=== PATIENT | female | born 1965 | race Caucasian/White ===

== ENCOUNTER 2017-08-31 00:57 | Emergency (ER) | payer BC, OTHER ==
[2017-08-31 04:05] VITALS: BP 130/80; PULSE 84; TEMP 98; BMI 33.3
--- NOTE | 2017-08-31 04:05 | PDOC ---
History of Present Illness - General Chief Complaint: Injury Stated Complaint: LEFT ANKLE INJURY Time Seen by Provider: 08/31/17 03:44 History Source: Patient Exam Limitations: No Limitations - History of Present Illness Initial Comments: 08/31/17 04:33 51-year-old female presents to the ER complaining of left lateral ankle pain patient states while walking, she accidentally rolled her left ankle while walking in the parking lot at work. Pain is described as 5/10 dull nonradiating intermittent discomfort. The pain is exacerbated on weight-bear and alleviated at rest. Patient denies extremity numbness or tingling sensation, knee or foot pain. Patient denies any other complaints.. Past History - Past Medical History Allergies/Adverse Reactions: Allergies Allergy/AdvReac Type Severity Reaction Status Date / Time No Known Drug Allergies Allergy Verified 08/31/17 04:05 Home Medications: Ambulatory Orders NK [No Known Home Medication] 08/31/17 COPD: Yes Liver Disease: Yes (NON ALCOHOLIC FATTY LIVER) - Surgical History Appendectomy: Yes - Suicide/Smoking/Psychosocial Hx Smoking History: Current every day smoker Have you smoked in the past 12 months: Yes Number of Cigarettes Smoked Daily: 20 Hx Alcohol Use: No Drug/Substance Use Hx: No Review of Systems - Review of Systems Able to Perform ROS?: Yes Comments:: 08/31/17 04:34 CONSTITUTIONAL: Absent: fever, chills, diaphoresis, generalized weakness, malaise, loss of appetite HEENT: Absent: rhinorrhea, nasal congestion, throat pain, throat swelling, difficulty swallowing, mouth swelling, ear pain, eye pain, visual Changes CARDIOVASCULAR: Absent: chest pain, loss of consciousness, palpitations, irregular heart rate, peripheral edema RESPIRATORY: Absent: cough, shortness of breath, dyspnea with exertion, orthopnea, wheezing, stridor, hemoptysis GASTROINTESTINAL: Absent: abdominal pain, abdominal distension, nausea, vomiting, diarrhea, constipation, melena, hematochezia GENITOURINARY: Absent: dysuria, frequency, urgency, hesitancy, hematuria, flank pain, genital pain MUSCULOSKELETAL: '+Left lat ankle pain Denies any ext numbness/tingling sensation Absent: myalgia, arthralgia, joint swelling SKIN: Absent: rash, itching, pallor Is the patient limited Slovak proficient: No *Physical Exam - Physical Exam Comments: 08/31/17 04:35 GENERAL: Well developed, well nourished. Awake and alert. No acute distress. MUSCULOSKELETAL Left ankle excluded: Normal range of motion at all joints. No bony deformities or tenderness. No CVA tenderness. EXTREMITIES: No cyanosis. No clubbing. No edema. No calf tenderness. SKIN: Warm and dry. Normal capillary refill. No rashes. No jaundice. Left ankle 2+ DP pulse Swelling to left lateral malleolus Pain to left lateral malleolus on palpation Negative pain to medial malleolus on palpation Achilles intact on palpation Decreased range of motion due to pain to the left lateral malleolus Left foot 2+ pedal pulse Negative pain to the base of the fifth metatarsal region Left knee Full range of motion Negative pain to proximal fibula on palpation ED Treatment Course - RADIOLOGY Radiology Studies Ordered: Category Date Time Status ANKLE & FOOT-LEFT* [RAD] Stat Radiology 08/31/17 02:38 Ordered Radiograph Interpretation: 08/31/17 04:05 Xr left ankle Negf fx/dislocations *DC/Admit/Observation/Transfer Diagnosis at time of Disposition: Left ankle sprain Qualifiers: Encounter type: initial encounter Involved ligament of ankle: other ligament Qualified Code(s): S93.492A - Sprain of other ligament of left ankle, initial encounter - Discharge Dispostion Disposition: HOME Condition at time of disposition: Stable Decision to Admit order: No - Referrals Referrals: Eugenio Locke MD [Primary Care Provider] - Hernando Montano MD [Staff Physician] - - Patient Instructions Printed Discharge Instructions: DI for Ankle Sprain Additional Instructions: Ice; 20 mins on alternating with 20 mins off for 48 hours while awake. Rest Elevate Follow up with your orthopedic surgeon or the one listed on the discharge form. Return to the ER for severe/persistent/worsening symptoms, extremity numbness/ tingling sensation. - Post Discharge Activity
== END 2017-08-31 04:20 | disposition home or self-care (01) ==
LOC: JER 00:57
DX: S93.492A Sprain of other ligament of left ankle, initial encounter (principal); X50.1XXA Overexertion from prolonged static or awkward postures, initial encounter; Y93.01 Activity, walking, marching and hiking; Y92.481 Parking lot as the place of occurrence of the external cause; Y99.0 Civilian activity done for income or pay
CPT/HCPCS: 73610-TC-LT-FY; 73630-TC-LT; 99281-25

== ENCOUNTER 2017-12-27 19:45 | Emergency (ER) | payer BC, OTHER ==
--- NOTE | 2017-12-27 19:51 | PDOC ---
History of Present Illness - General History Source: Patient Exam Limitations: No Limitations - History of Present Illness Initial Comments: 12/27/17 20:54 A portion of this note was documented by scribe services under my direction. I have reviewed the details of the note, within reason, and agree with the documentation. The case summary and management plan written by me. Procedure note incision and drainage of upper eyelid abscess Area was anesthetized with 1% lidocaine no epinephrine #11 scalpel was used to incise the abscess Small amount of purulent material was removed there was no loculation is due to the small area involved. Iodoform packing was placed and bacitracin with sterile dressing was applied Patient tolerated well Assessment and plan: This is a 52-year-old female with a small abscess to the medial aspect of her right right upper lid Abscess was incised and drained and packing was placed and patient was started on Bactrim First dose was given in the ED and patient was discharged for prescription and was sent to her pharmacy <Angelica Da Silva I - Last Filed: 12/27/17 20:53> - History of Present Illness Initial Comments: 12/27/17 21:02 The patient is a 52 year old female, with no significant past medical history, who presents to the emergency department with, right upper eyelid stye. As per patient, woke up with a stye a few days ago. She went to see her cutting machine tender to whom prescribed her azithromycin ointment for her eye. She took 2 doses of the antibiotics and noticed her eye to become worse prompting a repeat visit where she was prescribed oral antibiotics. The patient was unable to obtain her oral antibiotics prompting her visit to the ED. She reports difficulty seeing through the eye secondary to not being able to wear her eyeglasses due to the swelling and associated pain. She denies pain with movement of the eye. She denies recent fevers, chills, headache or dizziness. She denies recent nausea, vomit, diarrhea or constipation. She denies recent dysuria, frequency, urgency or hematuria. She denies recent chest pain or shortness of breath. PAST MEDICAL HISTORY: no significant history PAST SURGICAL HISTORY: no significant history FAMILY HISTORY: no pertinent history SOCIAL HISTORY: Pt lives with family and is employed. MEDICATIONS: reviewed ALLERGIES: As per nursing notes ROS: General: No fevers or chills, no weakness, no weight loss +HEENT: Right upper lid swelling and erythema. No sore throat,. No ear pain CardioVascular: No chest pain or shortness of breath Respiratory:No cough, or wheezing. Gastrointestinal: no nausea, vomiting, diarrhea or constipation, No rectal bleeding Genitourinary: No dysuria, hematuria, or frequency Musculoskeletal: No joint or muscle pain or swelling Neurologic: No headache, vertigo, dizziness or loss of consciousness Psychiatric: nor depression Skin: No rashes or easy bruising Endocrine: no increased thirst or abnormal weight change Allergic: no skin or latex allergy All other systems reviewed and normal Physical Exam: GENERAL: The patient is awake, alert, and fully oriented, in no acute distress. HEAD: Normal with no signs of trauma. +EYES: Right eye:Small palpable collection with some purulent drainage to the medial aspect of the right upper eyelid. Edema and erythema to the surrounding tissue of the right eye. Pupils equal, round and reactive to light, extraocular movements intact, sclera anicteric, conjunctiva clear. EXTREMITIES: Normal range of motion, no edema. NEUROLOGICAL: Normal speech, normal gait. PSYCH: Normal mood, normal affect. SKIN: Warm, Dry, normal turgor, no rashes or lesions noted. <Orville Messer - Last Filed: 12/27/17 21:03> - General Chief Complaint: Redness To Affected Area Stated Complaint: RT EYELID REDNESS/SWELLING Time Seen by Provider: 12/27/17 19:51 Past History - Past Medical History COPD: Yes Liver Disease: Yes (NON ALCOHOLIC FATTY LIVER) - Surgical History Appendectomy: Yes - Suicide/Smoking/Psychosocial Hx Smoking History: Current every day smoker Have you smoked in the past 12 months: Yes Number of Cigarettes Smoked Daily: 20 'Breaking Loose' booklet given: 08/31/17 Hx Alcohol Use: No Drug/Substance Use Hx: No <Angelica Da Silva I - Last Filed: 12/27/17 20:53> <Orville Messer - Last Filed: 12/27/17 21:03> - Past Medical History Allergies/Adverse Reactions: Allergies Allergy/AdvReac Type Severity Reaction Status Date / Time No Known Drug Allergies Allergy Verified 08/31/17 04:05 Home Medications: Ambulatory Orders Sulfamethoxazole/Trimethoprim [Bactrim DS -] 1 tab PO DAILY #14 tablet 12/27/17 *Physical Exam - Vital Signs Last Vital Signs Temp Pulse Resp BP Pulse Ox 98.2 F 92 H 16 142/77 97 12/27/17 19:46 12/27/17 19:46 12/27/17 19:46 12/27/17 19:46 12/27/17 19:46 <Orville Messer - Last Filed: 12/27/17 21:03> ED Treatment Course - Medications Given in the ED: ED Medications Discontinued Medications Generic Name Dose Route Start Last Admin Trade Name Estephanie PRN Reason Stop Dose Admin Clindamycin HCl 600 mg 12/27/17 20:15 12/27/17 20:23 Cleocin - PO 12/27/17 20:16 Not Given ONCE ONE Ketorolac Tromethamine 60 mg 12/27/17 20:14 12/27/17 20:23 Toradol Injection - IM 12/27/17 20:15 Not Given ONCE ONE Trimethoprim/Sulfamethoxazole 1 each 12/27/17 20:53 12/27/17 20:56 Bactrim Ds - PO 12/27/17 20:54 1 each ONCE ONE Administration <Orville Messer - Last Filed: 12/27/17 21:03> *DC/Admit/Observation/Transfer - Discharge Dispostion Decision to Admit order: No <Angelica Da Silva I - Last Filed: 12/27/17 20:53> - Attestations Scribe Attestion: 12/27/17 21:03 Documentation prepared by Orville Messer, acting as medical claims assistant for Angelica Da Silva MD. <Orville Messer - Last Filed: 12/27/17 21:03> Diagnosis at time of Disposition: Abscess of right upper eyelid - Discharge Dispostion Disposition: HOME Condition at time of disposition: Stable - Prescriptions Prescriptions: Sulfamethoxazole/Trimethoprim [Bactrim DS -] 1 tab PO DAILY #14 tablet - Referrals Referrals: Eugenio Locke MD [Primary Care Provider] - - Patient Instructions Additional Instructions: Removed the Band-Aid tomorrow afternoon and that the packing will most likely come off with a Band-Aid if it does not remove the packing and start hot soaks to the area. Go to the pharmacy and sampler pickup her prescription for the antibiotic take one tablet twice a day for 7 days. Follow-up with your eye doctor next week. Return to the emergency department immediately with ANY new, persistent or worsening symptoms. Continue any medications as previously prescribed by your physician. You should follow up with your primary doctor as soon as possible regarding today's emergency department visit. . Please make sure your doctor reviews the results of your emergency evaluation. Thank you for coming to the Emergency Department today for your care. It was a pleasure to see you today. Please note that your evaluation is INCOMPLETE until you follow-up with your doctor. - Post Discharge Activity
[2017-12-27] MEDS ORDERED: KETOROLAC TROMETHAMINE 60 MG/2 ML VIAL IM ONE (20:14)
[2017-12-27] MEDS ORDERED: CLINDAMYCIN HCL 300 MG CAPSULE PO ONE (20:15)
[2017-12-27 20:21] VITALS: BP 142/77; PULSE 92; TEMP 98.2; BMI 32.4
[2017-12-27] MEDS ORDERED: SULFAMETHOXAZOLE/TRIMETHOPRIM 800MG/160MG D.S. TABLET PO ONE (20:53)
[2017-12-27] MEDS ORDERED: SULFAMETHOXAZOLE/TRIMETHOPRIM 800MG/160MG D.S. TABLET ONE (20:56)
== END 2017-12-27 21:01 | disposition home or self-care (01) ==
LOC: FER 19:45
PROC: 089NXZZ Drainage of Right Upper Eyelid, External Approach (ICD-10-PCS; principal; 2017-12-27)
DX: H00.031 Abscess of right upper eyelid (principal); F17.210 Nicotine dependence, cigarettes, uncomplicated; J44.9 Chronic obstructive pulmonary disease, unspecified
CPT/HCPCS: 99281-25

== ENCOUNTER 2018-06-16 10:27 | Inpatient (IN) | payer BC ==
--- NOTE | 2018-06-16 11:47 | PDOC ---
Attending Attestation - HPI HPI: 06/16/18 12:34 The patient is a 52 year old female with a past medical history of multiple abscesses here today for evaluation of a gluteal abscess that has been present for the past 2-3 weeks. She reports that her abscess has been draining spontaneously during the past 2-3 weeks. Allergies: NKDA - Physicial Exam PE: 06/16/18 12:35 Vitals: Triage vital signs reviewed General Appearance: No acute distress, well nourished, well developed Head: Atraumatic Chest Wall: Nontender Cardiac: Regular rate and rhythm, no murmurs, no rubs, no gallops Lungs: Clear to auscultation bilateral, good air movement bilaterally Extremities: Full range of motion to all extremities, no cyanosis, clubbing, or edema Skin: +5x5 cm indurated cellulitic area of the left upper gluteal area. Warm and dry Neuro: AOX3; Cranial Nerves 2-12 grossly intact, Strength intact to all extremities, Sensation intact to all extremities, gait normal Psych: Normal mood, normal affect - Medical Decision Making 06/16/18 12:37 Documentation prepared by KASSANDRA Do, acting as medical billing instructor for Flavio Valencia MD. The patient is a 52 year old female with a past medical history of multiple abscesses here today for evaluation of a gluteal abscess that has been present for the past 2-3 weeks. <Shmuel Abdi - Last Filed: 06/16/18 12:34> - Resident Resident Name: Shruti Chambers - ED Attending Attestation I have performed the following: I have examined & evaluated the patient, The case was reviewed & discussed with the resident, I agree w/resident's findings & plan, Exceptions are as noted - Medical Decision Making 06/16/18 15:43 Large indurated gluteal abscess versus cellulitis No significant fluctuance noted on examination Will admit Pt. for IV antibiotics, warm compresses and surgical consultation <Flavio Valencia - Last Filed: 06/16/18 15:45>
[2018-06-16] MEDS ORDERED: ACETAMINOPHEN 1000 MG/100 ML VIAL (NON FORMULARY) IVPB ONE (11:48)
--- NOTE | 2018-06-16 12:10 | PDOC ---
History of Present Illness - General Chief Complaint: Wound Stated Complaint: ABSCESS ON BUTTOCKS Time Seen by Provider: 06/16/18 11:07 - History of Present Illness Initial Comments: Trina Myers is a 52yo woman with a PMH of multiple abscesses who was sent from her PMD for evaluation and management of a gluteal abscess. 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 She has had multiple courses of bactrim in the past but continues to have abscesses. She has never had a gluteal abscess before, however. She reports that she initially noted pain on 05/24/18 and was diagnosed with shingles at that time. Shortly afterwards, she also noted a "lump" in the area but tried to treat it at home without coming for drainage. Then two days ago, the lump "burst" with drainage of "pus and blood" and increase in pain. She states that her helps her drain it several times per day. Due to the increased pain and continued drainage, she went to see her PMD today who felt she may need IV antibiotics and admission due to the recurrent abscesses. Ms Myers denies any recent fevers/chills, other recent abscess, spreading erythema, or other recent symptoms. Past History - Past Medical History Allergies/Adverse Reactions: Allergies Allergy/AdvReac Type Severity Reaction Status Date / Time No Known Drug Allergies Allergy Verified 08/31/17 04:05 Home Medications: Ambulatory Orders Tramadol HCl 50 mg PO QID PRN #12 tablet MDD 4 01/26/18 COPD: Yes Liver Disease: Yes (NON ALCOHOLIC FATTY LIVER) - Surgical History Appendectomy: Yes - Suicide/Smoking/Psychosocial Hx Smoking History: Former smoker Have you smoked in the past 12 months: No Number of Cigarettes Smoked Daily: 20 Information on smoking cessation initiated: No 'Breaking Loose' booklet given: 08/31/17 Hx Alcohol Use: No Drug/Substance Use Hx: No Review of Systems - Review of Systems Comments:: General: No fevers, no chills, no weight or appetite change, no malaise HEENT: No changes in vision, no changes in hearing, no congestion, no sore throat CV: No chest pain, no palpitations, no LE edema Pulm: No SOB, no cough, no wheezing GI: No nausea or vomiting, no change in bowel habits, no melena : No frequency, no urgency, no dysuria Musc: No back pain, no joint swelling, no recent injury Skin: see HPI Endo: No excessive thirst, no heat/cold intolerance Heme: No unusual bruising or bleeding, no swollen glands Neuro: No syncope, no numbness/tingling, no focal weakness Vasc: No claudication Psych: No recent change in mood, no SI or HI *Physical Exam - Vital Signs Last Vital Signs Temp Pulse Resp BP Pulse Ox 98.6 F 84 16 122/74 98 06/16/18 10:42 06/16/18 10:42 06/16/18 10:42 06/16/18 10:42 06/16/18 10:42 - Physical Exam Comments: General: Uncomfortable HEENT: PERRL, EOMI, MMM, voice normal Cards: RRR, no murmur appreciated Pulm: Comfortable on room air Abd: Soft, nontender, nondistended Rectal: 6cm x 8cm indurated, erythematous, warm area to the left of the gluteal cleft. No obvious fluctuance or active drainage; dried pus/blood noted along gluteal cleft. Ext: Atraumatic. No LE edema. ROM intact. Vasc: Extremities WWP. Neuro: A&Ox3, CN grossly intact, normal speech, motor/sensory grossly intact and symmetric Psych: Mood appropriate to situation Moderate Sedation - Procedure Monitoring Vital Signs: Procedure Monitoring Vital Signs Temperature 98.6 F 06/16/18 10:42 Pulse Rate 84 06/16/18 10:42 Respiratory Rate 16 06/16/18 10:42 Blood Pressure 122/74 06/16/18 10:42 O2 Sat by Pulse Oximetry (%) 98 06/16/18 10:42 ED Treatment Course - LABORATORY CBC & Chemistry Diagram: 06/16/18 12:00 06/16/18 12:04 Medical Decision Making - Medical Decision Making 06/16/18 12:08 Trina Myers is a 52yo woman with a PMH of multiple abscesses who presents with a gluteal abscess present for 2-3 weeks, now draining spontaneously. - CBC, CMP to rule out abnormalities - Pt is in vertical area. Need to examine abscess, possibly I&D, after she is moved to a private room - IV acetaminophen for pain control 06/16/18 12:51 - Bedside US completed. Small fluid pocket at medial edge of abscess, approx 1cm in depth x 2cm wide, very little to drain at this point - Discussed with Dr Locke. Will admit to his service w/ surgery consult. IV clindamycin for MRSA coverage. Discussed with Dr Valencia. Shruti Chambers PGY1 *DC/Admit/Observation/Transfer Diagnosis at time of Disposition: Abscess and cellulitis of gluteal region - Discharge Dispostion Condition at time of disposition: Stable Decision to Admit order: Yes - Referrals - Patient Instructions - Post Discharge Activity
[2018-06-16] MEDS ORDERED: ACETAMINOPHEN INJECTION 100 ML IVPB ONE (12:15)
[2018-06-16 12:25] LABS: BASO % 0.5 % (0-2.0); EOS % 3.3 % (0-4.5); HEMATOCRIT 40.8 % (32.4-45.2); HEMOGLOBIN 14.1 GM/dL (10.7-15.3); LYMPH % 14.1 % (8-40); MCH 30.2 pg (25.7-33.7); MCHC 34.5 g/dl (32.0-36.0); MEAN CELL VOLUME 87.6 fl (80-96); MEAN PLT VOLUME 9.4 fl (7.5-11.1); MONO % 6.4 % (3.8-10.2); NEUT % 75.7 % (42.8-82.8); PLATELET COUNT 196 K/MM3 (134-434); RBC 4.66 M/mm3 (3.60-5.2); RDW 14.6 % (11.6-15.6); WHITE BLOOD COUNT 10.3 K/mm3 (4.0-10.0)
[2018-06-16 12:51] LABS: ALBUMIN 3.7 g/dl (3.4-5.0); ALK PHOS 128 U/L (45-117); ANION GAP 6 MMOL/L (8-16); BILIRUBIN,TOTAL 0.5 mg/dL (0.2-1); BLOOD UREA NITROGEN 12 mg/dL (7-18); CALCIUM 8.7 mg/dL (8.5-10.1); CHLORIDE 102 mmol/L (98-107); CO2 28 mmol/L (21-32); CREATININE 0.7 mg/dL (0.55-1.3); GLUCOSE,RANDOM 135 mg/dL (74-106); POTASSIUM 4.1 mmol/L (3.5-5.1); SGOT/AST 19 U/L (15-37); SGPT/ALT 33 U/L (13-61); SODIUM 136 mmol/L (136-145); TOT PROT 7.3 g/dl (6.4-8.2)
[2018-06-16] MEDS ORDERED: CLINDAMYCIN 600MG PREMIX IVPB 600 MG/50 ML BAG IVPB SCH (13:15)
[2018-06-16] MEDS ORDERED: CLINDAMYCIN 600MG PREMIX IVPB 600 MG/50 ML BAG IVPB ONE (13:45)
--- NOTE | 2018-06-16 14:39 | HP ---
Admitting History and Physical - Primary Care Physician PCP: Eugenio Locke - Admission Chief Complaint: came in with abscess in left gluteal region History of Present Illness: 52yo woman with a PMH of multiple abscesses who presents with a gluteal abscess present for 2-3 weeks, now draining spontaneously. per patient she started on bactrim and keflex , she reports chills at home, felt warm,she started doing oat meal baths, her pushed on her abscess and it drained significant amount per patient tylenol and clindamycin in ER History Source: Patient - Past Medical History ...LMP: 04/10/12 - Smoking History Smoking history: Former smoker Have you smoked in the past 12 months: No Aproximately how many cigarettes per day: 20 - Alcohol/Substance Use Hx Alcohol Use: No Home Medications - Allergies Allergies/Adverse Reactions: Allergies Allergy/AdvReac Type Severity Reaction Status Date / Time No Known Drug Allergies Allergy Verified 08/31/17 04:05 - Home Medications Home Medications: Ambulatory Orders Tramadol HCl 50 mg PO QID PRN #12 tablet MDD 4 01/26/18 Review of Systems - Review of Systems Neck: reports: No Symptoms Cardiovascular: reports: No Symptoms Respiratory: reports: No Symptoms Integumentary: reports: Erythema, Other (left gluteal abscess with two open lesions warm erythematous to touch) Physical Examination Vital Signs: Vital Signs Temperature 98.6 F 06/16/18 10:42 Pulse Rate 84 06/16/18 10:42 Respiratory Rate 16 06/16/18 10:42 Blood Pressure 122/74 06/16/18 10:42 O2 Sat by Pulse Oximetry (%) 98 06/16/18 10:42 Constitutional: Yes: Calm Cardiovascular: Yes: Regular Rate and Rhythm, S1, S2 Respiratory: Yes: CTA Bilaterally Gastrointestinal: Yes: Normal Bowel Sounds, Soft Integumentary: Yes: Erythema, Other (warm firm tender to touch) Labs: CBC, BMP 06/16/18 12:00 06/16/18 12:04 Problem List - Problems (1) Abscess and cellulitis of gluteal region Assessment/Plan: ID/surgical iv abx pain control esr dvt ppx Code(s): L02.31 - CUTANEOUS ABSCESS OF BUTTOCK; L03.317 - CELLULITIS OF BUTTOCK
[2018-06-16] MEDS ORDERED: ACETAMINOPHEN 325 MG TABLET (FP) PO PRN (14:42)
--- NOTE | 2018-06-16 15:33 | CONSULT ---
- Consultation REQUESTING PROVIDER: CONSULT REQUEST: We have been asked to surgically evaluate this patient for ( Gluteal abscess). PCP:Eugenio Locke HISTORY OF PRESENT ILLNESS: 52 y/o F w/ h/o multiple abscesses (+MRSA) pre-DM, now presents to ED with a gluteal abscess. Pt reports her noted a large rash on her posterior buttock on May 24. Pt was seen by PCP who prescribed Valtrex and Calamine for suspected shingles. States she completed entire course with no resolution, a few days later her noted a large red area adjacent to the rash. Reports her pushed on it and a large amount of "pus" came out. Area has continued to drain spontaneously since. States she was seen her PCP again and PO abx were prescribed (bactrim and keflex ), pt continued to develop worsening pain and was urged to go to the ED by her friend who is an DATA SYSTEMS ANALYST. Denies fevers/chills, n/v/d, cp/sob. Reports history of multiple abscesses + for MRSA which she reports she got from her who also has had multiple abscess + for MRSA. States abscesses have been treated with PO abx and I&D, denies need for hospital admissions/IV abx/ sepsis in the past. Last abscess was treated at [facility] (R eyelid) in December 2017. PMHx: as above PSHx: sinus surgery (March 2018) Home Medications Medication Instructions Recorded Tramadol HCl 50 mg PO QID PRN #12 tablet MDD 4 01/26/18 Allergies Allergy/AdvReac Type Severity Reaction Status Date / Time No Known Drug Allergies Allergy Verified 08/31/17 04:05 REVIEW OF SYSTEMS: CONSTITUTIONAL: Absent: fever, chills, diaphoresis CARDIOVASCULAR: Absent: chest pain, syncope RESPIRATORY: Absent: cough, shortness of breath SKIN: + rash PHYSICAL EXAM: GENERAL: Awake, alert, and fully oriented, in no acute distress. HEAD: Normal with no signs of trauma. Buttock/Gluteal: Approx 2.5x1.5cm open wound just above gluteal cleft, wound bed with dried fibrinous exudate with calamine atop, smaller similar wound to right of gluteal cleft approx 1x.5cm. No erythema or drainage. Approx 3x3cm indurated area on Left inner glute ++ increased warmth, ++ induration, ++ erythema, ++ttp. No fluctance appreciated. Unable to find sinus track. Unable to express any purulence, scant seropurulent drainage in gluteal cleft. Small punctate area at bottom of left gluteal fold +erythema, +induration, ? fluctance. Unable to express any purulence, Vital Signs Temperature 98.6 F 06/16/18 10:42 Pulse Rate 84 06/16/18 10:42 Respiratory Rate 16 06/16/18 10:42 Blood Pressure 122/74 06/16/18 10:42 O2 Sat by Pulse Oximetry (%) 98 06/16/18 10:42 Lab Results WBC 10.3 K/mm3 (4.0-10.0) H 06/16/18 12:00 RBC 4.66 M/mm3 (3.60-5.2) 06/16/18 12:00 Hgb 14.1 GM/dL (10.7-15.3) 06/16/18 12:00 Hct 40.8 % (32.4-45.2) 06/16/18 12:00 MCV 87.6 fl (80-96) 06/16/18 12:00 MCHC 34.5 g/dl (32.0-36.0) 06/16/18 12:00 RDW 14.6 % (11.6-15.6) 06/16/18 12:00 Plt Count 196 K/MM3 (134-434) 06/16/18 12:00 Sodium 136 mmol/L (136-145) 06/16/18 12:04 Potassium 4.1 mmol/L (3.5-5.1) 06/16/18 12:04 Chloride 102 mmol/L (98-107) 06/16/18 12:04 Carbon Dioxide 28 mmol/L (21-32) 06/16/18 12:04 Anion Gap 6 MMOL/L (8-16) L 06/16/18 12:04 BUN 12 mg/dL (7-18) 06/16/18 12:04 Creatinine 0.7 mg/dL (0.55-1.3) 06/16/18 12:04 Random Glucose 135 mg/dL (74-106) H 06/16/18 12:04 Calcium 8.7 mg/dL (8.5-10.1) 06/16/18 12:04 A/P: 52 y/o F w/ h/o multiple abscesses (+MRSA) pre-DM, now presents to ED with a gluteal abscess. Pt with + area of induration to left inner glute and gluteal fold. Afebrile, VSS, mildly elevated wbc -IV abx, would cover for MRSA due to pts past h/o + MRSA -ID consult -NPO after midnight for OR tomorrow for I&D -AM labs (cbc, chem, coags, bHCG) above d/w attending Dr Mckenzie
--- NOTE | 2018-06-16 16:02 | PN ---
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
[2018-06-16] MEDS ORDERED: VANCOMYCIN 1 GRAM (PRE-DOCKED) 1,000 MG/250 ML BAG IVPB ONE (16:55)
[2018-06-16] MEDS: VANCOMYCIN HCL 1,250 MG in DEXTROSE 5%-WATER - 250 ML IVPB SCH (17:56)
--- NOTE | 2018-06-16 18:52 | CONS ---
DATE OF CONSULTATION: 06/16/2018 DATE OF DICTATION: 06/16/2018 INFECTIOUS DISEASE CONSULTATION REQUESTING PHYSICIAN: Jean Claude Fernandez M.D. CONSULTING PHYSICIAN: Ember Cordoba M.D. HISTORY OF PRESENT ILLNESS: This is a 52-year-old woman. She has a gluteal abscess that has been present for the last 1 or 2 weeks. She originally noticed it and went to see her deck engine operator, who told her to use Hibiclens, and she complained of some urinary, said her urine was frothy, sent a urinalysis, and called her back and told her she had a UTI and gave her antibiotics for 7 days. Her back looked worse. She went to see her PMD who thought perhaps she had zoster. She was put on Valtrex 3 times a day and calamine lotion, which she did for 5 days, at which point she noted she was developing an abscess on her buttocks. The original area in her sacrum had dried up. She spoke to her friend who was a nurse practitioner who recommended, and she had Bactrim at home, so she started taking the Bactrim. She continued to have further symptoms, and she started doing oatmeal baths, and her stated, when he pushed on the abscess, was able to drain it. She reports chills at home, no reported fevers. In the emergency room she was noted to have erythema and induration of her left buttock. I am asked to see her for further evaluation. She was given Tylenol and clindamycin in the emergency room. PAST MEDICAL HISTORY: Unremarkable. She is a former smoker. She quit 14 days ago. She lives with her who has a history of MRSA in the past. He currently has no medical care, and she says he continues to develop MRSA abscesses. She gives a history of having had prior MRSA abscesses in the past. They are not documented at [facility]. ALLERGIES: No known drug allergies. MEDICATION: Tramadol as an outpatient. 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 PHYSICAL EXAMINATION: GENERAL: She is awake and alert. VITAL SIGNS: Temperature 98.6, pulse 84, blood pressure 122/74, respiratory rate 16. HEENT: Normocephalic. Eyes are anicteric. NECK: Supple. LUNGS: Clear to auscultation. HEART: Regular rate and rhythm. ABDOMEN: Soft, nontender. EXTREMITIES: Without edema. She has a healed area right above her gluteal cleft. Her left buttocks, she has a large area of erythema and induration. There are 2 small punctate holes from which there is some bloody drainage that can be expressed. She has another small area at the bottom of her left gluteal fold that is erythematous and indurated. LABORATORY: Notable for white count of 10, hemoglobin 14, platelets of 196, BUN and creatinine are 12 and 0.7. IMPRESSION: In summary this is a 52-year-old woman with a buttock abscess with surrounding cellulitis, history of methicillin-resistant Staphylococcus aureus. I would treat her with vancomycin and Zosyn at this time. Blood cultures have been ordered stat. Wound culture has been sent. Surgery is to see for drainage. Would maintain contact isolation given the prior history. There are no documented methicillin-resistant Staphylococcus aureus cultures in our system, but the patient claims she has had methicillin-resistant Staphylococcus aureus infection in the past. EMBER CORDOBA M.D. [id number]
[2018-06-16] MEDS ORDERED: oxyCODONE HCL 5 MG TABLET ONE (19:20)
[2018-06-16] MEDS: oxyCODONE HCL 5 MG TABLET PO PRN (19:36)
[2018-06-16] MEDS: PIPERACILLIN/TAZOB 3.375 GM 3.375 GM in DEXTROSE 5%-WATER - 50 ML IVPB SCH (20:30)
[2018-06-16] MEDS ORDERED: PIPERACILLIN/TAZOB 3.375 GM 3.375 GM/50 ML BAG IVPB ONE (20:33)
[2018-06-16] MEDS ORDERED: DOCUSATE SODIUM 100 MG CAPSULE (FP) PO SCH (22:00)
[2018-06-16] MEDS: HEPARIN NA (PORCINE) 5,000 UNITS/ML 1ML VIAL SQ SCH (22:30)
[2018-06-17] MEDS ORDERED: PIPERACILLIN/TAZOB 3.375 GM 3.375 GM/50 ML BAG IVPB ONE ×2 (02:03→09:56)
[2018-06-17] MEDS: PIPERACILLIN/TAZOB 3.375 GM 3.375 GM in DEXTROSE 5%-WATER - 50 ML IVPB SCH ×3 (02:13→18:00)
[2018-06-17] MEDS: VANCOMYCIN HCL 1,250 MG in DEXTROSE 5%-WATER - 250 ML IVPB SCH ×2 (05:00→16:25)
[2018-06-17 07:22] LABS: BASO % 0.6 % (0-2.0); HEMATOCRIT 38.7 % (32.4-45.2); HEMOGLOBIN 13.2 GM/dL (10.7-15.3); LYMPH % 22.3 % (8-40); MCHC 34.3 g/dl (32.0-36.0); MEAN CELL VOLUME 87.6 fl (80-96); MEAN PLT VOLUME 9.6 fl (7.5-11.1); MONO % 7.1 % (3.8-10.2); PLATELET COUNT 184 K/MM3 (134-434); RBC 4.41 M/mm3 (3.60-5.2); RDW 14.9 % (11.6-15.6); WHITE BLOOD COUNT 6.4 K/mm3 (4.0-10.0)
[2018-06-17 07:32] LABS: INR 0.96 (0.83-1.09); PROTHROMBIN TIME (PATIENT) 11.3 SEC (9.7-13.0)
[2018-06-17 07:34] LABS: ACTIVATED PTT 29.7 SECONDS (25.2-36.5)
[2018-06-17 07:49] LABS: ALBUMIN 3.3 g/dl (3.4-5.0); ALK PHOS 110 U/L (45-117); ANION GAP 7 MMOL/L (8-16); BILIRUBIN,TOTAL 0.6 mg/dL (0.2-1); BLOOD UREA NITROGEN 17 mg/dL (7-18); CALCIUM 8.5 mg/dL (8.5-10.1); CHLORIDE 103 mmol/L (98-107); CO2 27 mmol/L (21-32); CREATININE 0.6 mg/dL (0.55-1.3); GLUCOSE,RANDOM 91 mg/dL (74-106); PHOSPHOROUS 4.9 mg/dL (2.5-4.9); POTASSIUM 4.1 mmol/L (3.5-5.1); SGOT/AST 14 U/L (15-37); SGPT/ALT 28 U/L (13-61); SODIUM 138 mmol/L (136-145); TOT PROT 6.6 g/dl (6.4-8.2)
[2018-06-17] MEDS ORDERED: oxyCODONE HCL 5 MG TABLET ONE ×2 (08:47→16:06)
[2018-06-17] MEDS: oxyCODONE HCL 5 MG TABLET PO PRN ×2 (08:50→16:00)
[2018-06-17] MEDS: HEPARIN NA (PORCINE) 5,000 UNITS/ML 1ML VIAL SQ SCH ×2 (10:04→21:31)
--- NOTE | 2018-06-17 10:45 | EKG ---
Test Reason : Blood Pressure : / mmHG Vent. Rate : 077 BPM Atrial Rate : 077 BPM P-R Int : 158 ms QRS Dur : 090 ms QT Int : 382 ms P-R-T Axes : 059 043 045 degrees QTc Int : 432 ms NORMAL SINUS RHYTHM NORMAL ECG NO PREVIOUS ECGS AVAILABLE Confirmed by Al Alexandre MD ([id number]) on 06/17/2018 10:45:32 AM Referred By: GRICEL JOHNSON Confirmed By:Al Alexandre MD
[2018-06-17] MEDS ORDERED: LIDOCAINE HCL/PF 2% SDV 5ML VIAL ONE (11:23)
[2018-06-17] MEDS ORDERED: DEXAMETHASONE SOD PHOSPHATE 4 MG/1 ML VIAL ONE (11:23)
[2018-06-17] MEDS ORDERED: PROPOFOL 20 ML ONE (11:25)
[2018-06-17] MEDS ORDERED: MIDAZOLAM HCL 2 MG/2 ML SINGLE DOSE VIAL ONE (11:25)
--- NOTE | 2018-06-17 12:49 | OP ---
Operative Note - Note: Operative Date: 06/17/18 Pre-Operative Diagnosis: abscess left buttock and left posterior thigh Operation: incision and drainage abscesses Surgeon: Sae Mckenzie Cake Former: Itz Sevilla Anesthesiologist/GEOLOGIC TECHNICIAN: Juice Hanna Anesthesia: General Specimens Removed: culture abscess Estimated Blood Loss (mls): 10
[2018-06-17] MEDS ORDERED: ONDANSETRON 4 MG/2 ML VIAL IVPUSH PRN ×2 (14:39→14:56)
[2018-06-17] MEDS ORDERED: LACTATED RINGERS SOLUTION 1,000 ML IV SCH (14:45)
[2018-06-17] MEDS ORDERED: PROMETHAZINE HCL 25 MG/1 ML VIAL IVPUSH PRN (14:56)
--- NOTE | 2018-06-17 15:13 | PN ---
Progress Note, Physician Chief Complaint: patient seen in pacu compalining of gluteal region pain - Current Medication List Current Medications: Active Medications Acetaminophen (Tylenol -) 650 mg PO Q6H PRN PRN Reason: FEVER Docusate Sodium (Colace -) 300 mg PO HS DELL Fentanyl (Sublimaze Injection -) 50 mcg IVPUSH [id number] PRN PRN Reason: PAIN-PACU ORDER X 4 DOSES ONLY Fentanyl (Sublimaze Injection -) 50 mcg IVPUSH [id number] PRN PRN Reason: PAIN-PACU ORDER X 4 DOSES ONLY Heparin Sodium (Porcine) (Heparin -) 5,000 unit SQ BID DELL Vancomycin HCl 1,250 mg/ (Dextrose) 250 mls @ 166.667 mls/hr IVPB Q12H DELL; Protocol Piperacillin Sod/Tazobactam (Sod 3.375 gm/ Dextrose) 50 mls @ 100 mls/hr IVPB Q8H-IV DELL; Protocol Lactated Ringer's (Lactated Ringers Solution) 1,000 mls @ 125 mls/hr IV ASDIR DELL Lactated Ringer's (Lactated Ringers Solution) 1,000 mls @ 125 mls/hr IV ASDIR DELL Ondansetron HCl (Zofran Injection) 4 mg IVPUSH Q6H PRN PRN Reason: NAUSEA AND/OR VOMITING Ondansetron HCl (Zofran Injection) 4 mg IVPUSH Q6H PRN PRN Reason: NAUSEA AND/OR VOMITING Oxycodone HCl (Roxicodone -) 5 mg PO Q6H PRN PRN Reason: PAIN LEVEL 7 - 10 Promethazine HCl (Phenergan Injection -) 12.5 mg IVPUSH Q6H PRN PRN Reason: NAUSEA-FOR RESCUE AFTER 15 MIN - Objective Vital Signs: Vital Signs Temperature 98.4 F 06/17/18 08:35 Pulse Rate 78 06/17/18 14:30 Respiratory Rate 18 06/17/18 14:30 Blood Pressure 119/68 06/17/18 14:30 O2 Sat by Pulse Oximetry (%) 100 06/17/18 14:30 Constitutional: Yes: Mild Distress Cardiovascular: Yes: Regular Rate and Rhythm, S1, S2 Respiratory: Yes: CTA Bilaterally Gastrointestinal: Yes: Normal Bowel Sounds, Soft Wound/Incision: Yes: Other (wound packed in gluteal region) Labs: CBC, BMP 06/17/18 05:30 06/17/18 06:30 INR, PTT INR 0.96 (0.83-1.09) 06/17/18 05:38 Problem List - Problems (1) Abscess and cellulitis of gluteal region Assessment/Plan: - Note: Operative Date: 06/17/18 Pre-Operative Diagnosis: abscess left buttock and left posterior thigh Operation: incision and drainage abscesses Surgeon: Sae Mckenzie Lasting Floorworker: Itz Sevilla Anesthesiologist/GAS STATION CLERK: Juice Hanna Anesthesia: General Specimens Removed: culture abscess Estimated Blood Loss (mls): 10 pain control stol softner dvt ppxiv abx per ID wound culture presumtpive MRSA on vancomcyin contact isolation Microbiology 06/16/18 15:45 Buttock - Left Gram Stain - Final 06/16/18 15:45 Buttock - Left Wound Culture - Preliminary Presumptive Mrsa (Pbp2a Pos) Code(s): L02.31 - CUTANEOUS ABSCESS OF BUTTOCK; L03.317 - CELLULITIS OF BUTTOCK
[2018-06-17] MEDS: LACTATED RINGERS SOLUTION 1,000 ML IV SCH ×2 (16:25→21:44)
[2018-06-17 21:12] VITALS: BMI 33.4
[2018-06-17] MEDS: DOCUSATE SODIUM 100 MG CAPSULE (FP) PO SCH (21:31)
[2018-06-18] MEDS ORDERED: DEXTROSE 5%-WATER - 50 ML IVPB ONE (01:54)
[2018-06-18] MEDS ORDERED: PIPERACILLIN/TAZOBACTAM 3.375 GM VIAL IVPB ONE (01:54)
[2018-06-18] MEDS: PIPERACILLIN/TAZOB 3.375 GM 3.375 GM in DEXTROSE 5%-WATER - 50 ML IVPB SCH (01:58)
[2018-06-18] MEDS: VANCOMYCIN HCL 1,250 MG in DEXTROSE 5%-WATER - 250 ML IVPB SCH ×2 (03:54→16:02)
[2018-06-18] MEDS: oxyCODONE HCL 5 MG TABLET PO PRN (07:08)
[2018-06-18 07:21] LABS: BASO % 0.8 % (0-2.0); EOS % 0.1 % (0-4.5); HEMATOCRIT 37.4 % (32.4-45.2); HEMOGLOBIN 12.6 GM/dL (10.7-15.3); LYMPH % 12.5 % (8-40); MCH 29.3 pg (25.7-33.7); MCHC 33.5 g/dl (32.0-36.0); MEAN CELL VOLUME 87.3 fl (80-96); MEAN PLT VOLUME 9.2 fl (7.5-11.1); MONO % 6.3 % (3.8-10.2); NEUT % 80.3 % (42.8-82.8); PLATELET COUNT 222 K/MM3 (134-434); RBC 4.29 M/mm3 (3.60-5.2); RDW 14.2 % (11.6-15.6); WHITE BLOOD COUNT 10.2 K/mm3 (4.0-10.0)
[2018-06-18] MEDS ORDERED: MORPHINE SULFATE 2 MG/ML VIAL SQ ONE (07:30)
[2018-06-18 07:49] LABS: ALBUMIN 3.4 g/dl (3.4-5.0); ALK PHOS 114 U/L (45-117); ANION GAP 9 MMOL/L (8-16); BILIRUBIN,TOTAL 0.5 mg/dL (0.2-1); BLOOD UREA NITROGEN 13 mg/dL (7-18); CHLORIDE 104 mmol/L (98-107); CO2 28 mmol/L (21-32); CREATININE 0.6 mg/dL (0.55-1.3); GLUCOSE,RANDOM 141 mg/dL (74-106); POTASSIUM 4.2 mmol/L (3.5-5.1); SGOT/AST 10 U/L (15-37); SGPT/ALT 31 U/L (13-61); SODIUM 140 mmol/L (136-145); TOT PROT 6.9 g/dl (6.4-8.2)
--- NOTE | 2018-06-18 08:31 | SURG ---
Surgery Radiologic Technology Teacher Note Radiologic Technology Teacher: Itz Sevilla PA-C (Suzy) Date of Service: 06/18/18 Diagnosis: abscess left buttock and left posterior thigh Procedure: incision and drainage gluteal abscesses I was present for the entirety of the operative procedure. For further detail, please refer to operative report. Visit type - Case Type Case Type: Scheduled - Emergency Emergency Visit: No - New patient This patient is new to me today: Yes Date on this admission: 06/18/18 - Critical Care Critical Care patient: No
--- NOTE | 2018-06-18 08:33 | PN ---
Progress Note (short form) - Note Progress Note: POD 1, s/p incision and drainage of gluteal abscesses Pt seen and examined. States she is doing "okay" this morning. Reports surgical site is "sore". Pain controlled with PO pain medications. Tolerating PO, has been oob without issue. Anxious to be discharged as she has a sone with special needs at home. Denies cp/sob, n/v/d. Vital Signs Temp 97.7 F 06/18/18 05:39 Pulse 83 06/18/18 05:39 Resp 19 06/18/18 05:39 BP 122/60 06/18/18 05:39 Pulse Ox 96 06/17/18 21:04 Intake & Output 06/17/18 06/17/18 06/18/18 11:59 23:59 11:59 Intake Total 745 578 3498 Output Total 1341 Balance 450 -541 1425 Weight 200 lb 11.2 oz Intake: IV 737 339 6727 Lactated Ringers Solution 1125 1,000 ml @ 125 mls/hr IV ASDIR DELL Rx#: [id number] IVPB 300 Output: Urine 1301 Void 1 Estimated Blood Loss 10 Other 30 Other: Voiding Method Toilet Toilet Bowel Movement No Height 5 ft 5 in Body Mass Index (BMI) 33.4 Weight Measurement Method Built in [facility] CBC, BMP 06/18/18 06:30 06/18/18 06:30 Gen: awake, alert, nad Resp: unlabored on RA Gluteal area: Gluteal fold dressing with moderate serosanguinous drainage. Dressing and packing removed, incision clean with scant fibrinous exudate at lateral edges, scant serosanguinous drainage. Incision re-packed with Iodoform packing and 4x4 and tegaderm replaced. Gluteal cleft dressing with moderate serosanguinous drainage, dressing removed, incision clean with scant fibrinous exudate at lateral edges, scant serosanguinous drainage. Incision re-packed with Iodoform packing and 4x4/tegaderm. Surrounding erythema decreasing at both I&D sites. +TTP with dressing change (pt pre-medicated with Morphine). A/P: 52 y/o F w/ h/o multiple abscesses (+MRSA) pre-DM, admitted with gluteal abscess, now POD1, s/p s/p incision and drainage of gluteal abscesses. Doing well this AM Pain controlled Wounds stable, afebrile, VSS -F/U Cultures (presumptive MRSA) -ID f/u for ABX regimen -Continue daily dressing changes with Iodoform packing/4x4 and tegaderm -Pt should f/u in [address] Mckenzie in the office above d/w attending Dr Mckenzie
[2018-06-18] MEDS: HEPARIN NA (PORCINE) 5,000 UNITS/ML 1ML VIAL SQ SCH ×2 (10:09→21:38)
--- NOTE | 2018-06-18 10:23 | PN ---
Progress Note (short form) - Note Progress Note: doing well s/p drainage of MRSA abscess Vital Signs Period Temp Pulse Resp BP Sys/Calderon Pulse Ox Last 24 Hr 97.7 F-98.9 F 71-94 13-23 93-145/43-87 95-100 cor-rrr llungs clear abd soft,nt ext much less erythema of the left buttock wound is packed CBC, BMP 06/18/18 06:30 06/18/18 06:30 Microbiology 06/17/18 10:06 Blood - Peripheral Venous Blood Culture - Preliminary NO GROWTH OBTAINED AFTER 24 HOURS, INCUBATION TO CONTINUE FOR 4 DAYS. 06/16/18 15:45 Buttock - Left Gram Stain - Final 06/16/18 15:45 Buttock - Left Wound Culture - Final S Aureus 06/17/18 12:30 Abscess Gram Stain - Final Active Medications Acetaminophen (Tylenol -) 650 mg PO Q6H PRN PRN Reason: FEVER Docusate Sodium (Colace -) 300 mg PO HS [facility] Last Admin: 06/17/18 21:31 Dose: 300 mg Heparin Sodium (Porcine) (Heparin -) 5,000 unit SQ BID DELL Last Admin: 06/18/18 10:09 Dose: 5,000 unit Vancomycin HCl 1,250 mg/ (Dextrose) 250 mls @ 166.667 mls/hr IVPB Q12H [facility]; Protocol Last Admin: 06/18/18 03:54 Dose: 166.667 mls/hr Lactated Ringer's (Lactated Ringers Solution) 1,000 mls @ 125 mls/hr IV ASDIR DELL Last Admin: 06/17/18 21:44 Dose: 125 mls/hr Ondansetron HCl (Zofran Injection) 4 mg IVPUSH Q6H PRN PRN Reason: NAUSEA AND/OR VOMITING Oxycodone HCl (Roxicodone -) 5 mg PO Q6H PRN PRN Reason: PAIN LEVEL 7 - 10 Last Admin: 06/18/18 07:08 Dose: 5 mg Promethazine HCl (Phenergan Injection -) 12.5 mg IVPUSH Q6H PRN PRN Reason: NAUSEA-FOR RESCUE AFTER 15 MIN imp/reccd s/p drainage of MRSA abscess doing well much less erythema, still quite painful continue vancomycin MRSA is resistant to clindamycin plan to switch to po bactrim in am if she continues to improve d/w dr alan
--- NOTE | 2018-06-18 11:06 | PN ---
Progress Note, Physician Chief Complaint: Gluteal abscess History of Present Illness: Operative Date: 06/17/18 Pre-Operative Diagnosis: abscess left buttock and left posterior thigh Operation: incision and drainage abscesses Surgeon: Sae Mckenzie Ad Operations Coordinator: Itz Sevilla Anesthesiologist/EXECUTIVE MANAGER: Juice Hanna Anesthesia: General Specimens Removed: culture abscess Estimated Blood Loss (mls): 10 - Current Medication List Current Medications: Active Medications Acetaminophen (Tylenol -) 650 mg PO Q6H PRN PRN Reason: FEVER Docusate Sodium (Colace -) 300 mg PO HS [facility] Last Admin: 06/17/18 21:31 Dose: 300 mg Heparin Sodium (Porcine) (Heparin -) 5,000 unit SQ BID DE[facility] Last Admin: 06/18/18 10:09 Dose: 5,000 unit Vancomycin HCl 1,250 mg/ (Dextrose) 250 mls @ 166.667 mls/hr IVPB Q12H [facility]; Protocol Last Admin: 06/18/18 03:54 Dose: 166.667 mls/hr Lactated Ringer's (Lactated Ringers Solution) 1,000 mls @ 125 mls/hr IV ASDIR DELL Last Admin: 06/17/18 21:44 Dose: 125 mls/hr Ondansetron HCl (Zofran Injection) 4 mg IVPUSH Q6H PRN PRN Reason: NAUSEA AND/OR VOMITING Oxycodone HCl (Roxicodone -) 5 mg PO Q6H PRN PRN Reason: PAIN LEVEL 7 - 10 Last Admin: 06/18/18 07:08 Dose: 5 mg Promethazine HCl (Phenergan Injection -) 12.5 mg IVPUSH Q6H PRN PRN Reason: NAUSEA-FOR RESCUE AFTER 15 MIN - Objective Vital Signs: Vital Signs Temperature 97.7 F 06/18/18 05:39 Pulse Rate 83 06/18/18 05:39 Respiratory Rate 19 06/18/18 05:39 Blood Pressure 122/60 06/18/18 05:39 O2 Sat by Pulse Oximetry (%) 96 06/17/18 21:04 Constitutional: Yes: Well Nourished, No Distress, Calm, Obese Cardiovascular: Yes: Regular Rate and Rhythm Respiratory: Yes: Regular Gastrointestinal: Yes: WNL Genitourinary: Yes: WNL Musculoskeletal: Yes: WNL Extremities: Yes: WNL Edema: No Peripheral Pulses WNL: Yes Wound/Incision: Yes: Dressing Dry and Intact Neurological: Yes: Alert, Oriented Psychiatric: Yes: Alert, Oriented Labs: CBC, BMP 06/18/18 06:30 06/18/18 06:30 INR, PTT INR 0.96 (0.83-1.09) 06/17/18 05:38 Problem List - Problems (1) Abscess and cellulitis of gluteal region Assessment/Plan: Operative Date: 06/17/18 Pre-Operative Diagnosis: abscess left buttock and left posterior thigh Operation: incision and drainage abscesses Surgeon: Sae Mckenzie Ad Operations Coordinator: Itz Sevilla Anesthesiologist/EXECUTIVE MANAGER: Juice Hanna Anesthesia: General Specimens Removed: culture abscess Estimated Blood Loss (mls): 10 Cultures: Microbiology 06/17/18 10:30 Blood - Peripheral Venous Blood Culture - Preliminary NO GROWTH OBTAINED AFTER 24 HOURS, INCUBATION TO CONTINUE FOR 4 DAYS. 06/17/18 10:06 Blood - Peripheral Venous Blood Culture - Preliminary NO GROWTH OBTAINED AFTER 24 HOURS, INCUBATION TO CONTINUE FOR 4 DAYS. 06/16/18 15:45 Buttock - Left Gram Stain - Final 06/16/18 15:45 Buttock - Left Wound Culture - Final Mr S Aureus 06/17/18 12:30 Abscess Gram Stain - Final Seen by ID -On IV vancomycin -As per ID, d/c home in AM on Bactrim DS Code(s): L02.31 - CUTANEOUS ABSCESS OF BUTTOCK; L03.317 - CELLULITIS OF BUTTOCK Assessment/Plan SEE PROBLEM LIST SELF AMBULATORY
[2018-06-18] MEDS: ACETAMINOPHEN 325 MG TABLET (FP) PO PRN (16:37)
[2018-06-18] MEDS: DOCUSATE SODIUM 100 MG CAPSULE (FP) PO SCH (21:38)
[2018-06-19] MEDS: oxyCODONE HCL 5 MG TABLET PO PRN ×2 (02:51→12:42)
[2018-06-19] MEDS: VANCOMYCIN HCL 1,250 MG in DEXTROSE 5%-WATER - 250 ML IVPB SCH (03:30)
[2018-06-19] MEDS: LACTATED RINGERS SOLUTION 1,000 ML IV SCH (03:32)
[2018-06-19 10:37] VITALS: BP 128/67; PULSE 82; TEMP 98.1
[2018-06-19] MEDS: HEPARIN NA (PORCINE) 5,000 UNITS/ML 1ML VIAL SQ SCH (10:39)
--- NOTE | 2018-06-19 12:21 | DS ---
Physical Examination Vital Signs: Vital Signs Temperature 98.1 F 06/19/18 09:00 Pulse Rate 82 06/19/18 09:00 Respiratory Rate 18 06/19/18 09:00 Blood Pressure 128/67 06/19/18 09:00 O2 Sat by Pulse Oximetry (%) 97 06/19/18 09:00 Findings/Remarks: Patient is a 52 y/o female who presented to ER with L gluteal abscess for 2-3 weeks. Patient was admitted for IV ABT and evaluated by surgery. I&D performed on 06/17/18. Patient states pain is controlled. Constitutional: Yes: Well Nourished, No Distress, Calm Eyes: Yes: Conjunctiva Clear HENT: Yes: Atraumatic Cardiovascular: Yes: Regular Rate and Rhythm Respiratory: Yes: Regular, CTA Bilaterally Gastrointestinal: Yes: Normal Bowel Sounds, Soft Musculoskeletal: Yes: WNL Extremities: Yes: WNL Edema: No Wound/Incision: Yes: Dressing Dry and Intact (serosanguinous drainage noted to dressing L gluteal area) Neurological: Yes: Alert, Oriented Psychiatric: Yes: Alert, Oriented Labs: CBC, BMP 06/18/18 06:30 06/18/18 06:30 Microbiology 06/17/18 12:30 Abscess Gram Stain - Final 06/17/18 12:30 Abscess Wound Culture - Final S Aureus 06/17/18 10:30 Blood - Peripheral Venous Blood Culture - Preliminary NO GROWTH OBTAINED AFTER 48 HOURS, INCUBATION TO CONTINUE FOR 3 DAYS. 06/17/18 10:06 Blood - Peripheral Venous Blood Culture - Preliminary NO GROWTH OBTAINED AFTER 48 HOURS, INCUBATION TO CONTINUE FOR 3 DAYS. 06/16/18 15:45 Buttock - Left Gram Stain - Final 06/16/18 15:45 Buttock - Left Wound Culture - Final S Aureus Discharge Summary Reason For Visit: ABSCESS AND CELLULITIS OF GLUTEAL REGION Current Active Problems Abscess and cellulitis of gluteal region (Acute) Procedures: Principal: L gluteal abscess I&D Condition: Improved - Instructions Diet, Activity, Other Instructions: Dr. Mckenzie Discharge Instructions Dear NARA SOOD, Post Operative Instructions Physical activity Resume your normal everyday activity as tolerated no heavy lifting or exercise until seen by your surgeon. You may walk unlimited amounts of and climb stairs. You may resume driving the car when you feel safe and comfortable behind the wheel. Wound care VNS will be set up for daily dressing changes with Iodoform packing, 4x4 and tegaderm until the wound has contracted. Diet There are no dietary restrictions. Eat healthy, high-fiber foods. Drink 6 to 8 glasses of liquid each day. This will assist in keeping your bowels are regular. Pain management You may take Tylenol (Acetaminophen) or Ibuprofen (for example, Motrin, Advil etc.) Any pain prescription medication ordered should be taken as prescribed for moderate to severe pain. Do not drive, drink alcohol or operate heavy machinery while taking narcotic pain medications. Call Dr. Mckenzie for any of the following: Severe pain not relieved by medication Fever of 101 or higher Excessive bleeding or drainage on dressing Inability to urinate Call the office at [phone] for a post operative appointment in 7 - 10 days. Follow up with PMD in 1 week daily dressing changes, VNS services for wound care 3 times per week continue with antibiotic therapy Referrals: Eugenio Locke MD [Primary Care Provider] - Disposition: HOME - Home Medications Comprehensive Discharge Medication List: Ambulatory Orders Tramadol HCl 50 mg PO QID PRN #12 tablet MDD 4 01/26/18
[2018-06-19] MEDS: ACETAMINOPHEN 325 MG TABLET (FP) PO PRN (12:43)
--- NOTE | 2018-06-19 13:05 | OP ---
DATE OF OPERATION: 06/17/2018 PREOPERATIVE DIAGNOSIS: Soft tissue abscess, left buttock and left posterior thigh. POSTOPERATIVE DIAGNOSIS: Soft tissue abscess, left buttock and left posterior thigh. PROCEDURE: Incision and drainage of abscesses. SURGEON: Sae Mckenzie MD LOFTSMAN: Lynn Sevilla PA-C ANESTHESIA: General. OPERATIVE FINDINGS: There were two soft tissues abscesses. The first one involving the medial aspect of the left buttock and the second the upper left posterior thigh. The rest of the findings were unremarkable. PROCEDURE: The patient was placed on the operating room table in the supine position, and after the induction of general endotracheal anesthesia, turned into the right lateral decubitus position. The area over both abscesses was prepped with Betadine and draped in sterile fashion. A timeout was taken and then incision and drainage carried out using the scalpel. All loculations were broken up using blunt and sharp dissection in both areas, and then each wound was copiously irrigated with sterile saline and peroxide, and hemostasis secured with electrocautery. The wounds were packed with 1/2-inch iodoform gauze and each wound dressed with dry sterile dressings. The procedure terminated at this point. The patient aroused from general anesthesia, and transferred to the postanesthesia care unit, in stable condition, awake and alert. DRAINS: Iodoform packing. SPECIMENS: Culture of abscess. ESTIMATED BLOOD LOSS: 10 mL. REPLACEMENTS: Crystalloid. I, Sae Mckenize, was physically present in the operating room from the time the patient was placed on the operating room table until she was transferred to the postanesthesia care unit in my accompaniment. Sae Mckenzie MD /[id number] MTDD
[2018-06-19] MEDS ORDERED: SULFAMETHOXAZOLE/TRIMETHOPRIM 800MG/160MG D.S. TABLET PO SCH (22:00)
== END 2018-06-19 15:42 | disposition home or self-care (01) | DRG 603 ==
LOC: JER 10:27 → JERBED 12:58 → J6S 06-17 20:47
PROVIDERS: ADMIT Family Medicine; ATTEND Family Medicine
PROC: 0J990ZX Drainage of Buttock Subcutaneous Tissue and Fascia, Open Approach, Diagnostic (ICD-10-PCS; principal; 2018-06-17 12:00)
DX: L02.31 Cutaneous abscess of buttock (principal); K76.0 Fatty (change of) liver, not elsewhere classified; L03.317 Cellulitis of buttock; B95.62 Methicillin resistant Staphylococcus aureus infection as the cause of diseases classified elsewhere; Z87.891 Personal history of nicotine dependence
CPT/HCPCS: 36415; 71046-TC-FY; 80053; 83036; 83735; 84100; 84484; 84703; 85025; 85027; 85610; 85651; 85730; 87040; 87070; 87186; 87205; 93005; 93010; 94760; 99284-25; J0131; J1644

== ENCOUNTER 2019-01-02 10:41 | Emergency (ER) | payer BC ==
[2019-01-02 11:04] VITALS: BP 130/70; PULSE 68; TEMP 98.5; BMI 29.9
--- NOTE | 2019-01-02 11:53 | PDOC ---
History of Present Illness - General Chief Complaint: Pain Stated Complaint: LWR ABD PAIN Time Seen by Provider: 01/02/19 11:46 History Source: Patient - History of Present Illness Initial Comments: 01/02/19 12:14 53 y/o female with a PMH of vaginal bleed (s/p uterine ablation) presents to the ED c/o 2-3 week h/o lower abdominal pain. Patient is unable to qualify the pain but states it is intermittent w/o any relation to food, movement or breathing. No nausea/vomiting, fevers/chills, vaginal bleeding, dysuria/ hematuria but does endorse urinary urgency w/difficulty urinating this a.m. 10 point ROS is negative including no chest pain, shortness of breath, nausea/ vomiting, diarrhea/constipation. NKDA Surgical: L mastoidectomy x2, L thumb nerve repair PMD: Dr. Locke Past History - Past Medical History Allergies/Adverse Reactions: Allergies Allergy/AdvReac Type Severity Reaction Status Date / Time No Known Drug Allergies Allergy Verified 01/02/19 11:00 Home Medications: Ambulatory Orders Acetaminophen [Tylenol .Regular Strength -] 650 mg PO Q6H PRN #45 tablet COPD: Yes Liver Disease: Yes (NON ALCOHOLIC FATTY LIVER) - Surgical History Appendectomy: Yes - Reproductive History Is Patient Now?: No - Suicide/Smoking/Psychosocial Hx Smoking History: Current every day smoker Have you smoked in the past 12 months: No Number of Cigarettes Smoked Daily: 20 Information on smoking cessation initiated: No 'Breaking Loose' booklet given: 08/31/17 Hx Alcohol Use: No Drug/Substance Use Hx: No Review of Systems - Review of Systems Constitutional: No: Chills, Fever HEENTM: No: Blurred Vision, Recent change in vision Respiratory: No: Cough, Shortness of Breath Cardiac (ROS): No: Chest Pain, Lightheadedness, Palpitations ABD/GI: No: Constipated, Diarrhea, Nausea, Vomiting : Yes: Urgency. No: Dysuria, Hematuria *Physical Exam - Vital Signs Last Vital Signs Temp Pulse Resp BP Pulse Ox 98.5 F 68 18 130/70 98 01/02/19 11:00 01/02/19 11:00 01/02/19 11:00 01/02/19 11:00 01/02/19 11:00 - Physical Exam General Appearance: Yes: Nourished, Appropriately Dressed HEENT: positive: Normal Voice, Hearing Grossly Normal Neck: positive: Trachea midline, Supple Respiratory/Chest: positive: Lungs Clear, Normal Breath Sounds. negative: Crackles, Wheezing Cardiovascular: positive: Regular Rhythm, S1, S2 Gastrointestinal/Abdominal: positive: Normal Bowel Sounds, Soft, Other (mild abdominal TTP in B/L LQ w/o peritoneal sign) Musculoskeletal: negative: CVA Tenderness (R), CVA Tenderness (L) Extremity: positive: Normal Capillary Refill, Normal Inspection Integumentary: positive: Normal Color, Dry, Warm Neurologic: positive: blueprint clerk II-XII NML intact, Fully Oriented, Alert ED Treatment Course - LABORATORY CBC & Chemistry Diagram: 01/02/19 11:50 01/02/19 11:50 Medical Decision Making - Medical Decision Making 01/02/19 11:55 53 y/o female with lower abdominal pain. H/o uterine ablation with uterine bleed. VS unremarkable. Mild abominal TTP w/o peritoneal sign. Will obtain TVUS to evaluate for free fluid, ovarian torsion. Reassess Case d/w Dr. Locke - patient presented to his office this morning and evaluated by AMMUNITION COMPONENTS INSPECTOR, sent to ED for further evaluation 01/02/19 12:52 CBC, CMP unremarkable My read of TVUS shows no free fluid; formal read pending, patient symptomatically improved, ambulatory around ED, requesting discharge 01/02/19 13:34 TVUS negative for free fluid. Patient given copy of TVUS report, will follow- up with OB-Knit Goods Washer within the next 1 week. *DC/Admit/Observation/Transfer Diagnosis at time of Disposition: Pelvic pain - Discharge Dispostion Disposition: HOME Condition at time of disposition: Good Decision to Admit order: No - Referrals - Patient Instructions Additional Instructions: You were evaluated today for your pelvic pain. At this time you are safe for discharge home. You can take Tylenol (up to 4000 mg daily) alternating with Motrin (up to 3200 mg daily) every 8 hours Follow up with your sales and service officer in the one week. We are providing you a copy of your ultrasound. Please take this to a follow up appointment with your OB-Knit Goods Washer. Your care is not complete until you are evaluated by your OB-Knit Goods Washer. Return to the Emergency Department for any new/worsening/concerning symptoms. - Post Discharge Activity
[2019-01-02 12:06] LABS: HEMATOCRIT 41.6 % (32.4-45.2); HEMOGLOBIN 13.9 GM/dL (10.7-15.3); LYMPH % 27.3 % (8-40); MCHC 33.5 g/dl (32.0-36.0); MEAN CELL VOLUME 86.6 fl (80-96); MEAN PLT VOLUME 9.9 fl (7.5-11.1); MONO % 5.9 % (3.8-10.2); NEUT % 63.8 % (42.8-82.8); PLATELET COUNT 210 K/MM3 (134-434); RBC 4.81 M/mm3 (3.60-5.2); RDW 15.5 % (11.6-15.6); WHITE BLOOD COUNT 8.3 K/mm3 (4.0-10.0)
[2019-01-02 12:34] LABS: BILIRUBIN,TOTAL 0.6 mg/dL (0.2-1); BLOOD UREA NITROGEN 14.3 mg/dL (7-18); CALCIUM 9.2 mg/dL (8.5-10.1); CREATININE 0.6 mg/dL (0.55-1.3); POTASSIUM 4.3 mmol/L (3.5-5.1); TOT PROT 7.3 g/dl (6.4-8.2)
[2019-01-02 13:21] LABS: URINE APPEARANCE CLEAR; URINE BILIRUBIN NEGATIVE (NEGATIVE); URINE COLOR YELLOW; URINE GLUCOSE (UA) NEGATIVE (NEGATIVE); URINE KETONE NEGATIVE (NEGATIVE); URINE LEUK ESTERASE NEGATIVE (NEGATIVE); URINE NITRITE NEGATIVE (NEGATIVE); URINE PROTEIN NEGATIVE (NEGATIVE); URINE UROBILINOGEN 0.2 mg/dL (0.2-1.0)
--- NOTE | 2019-01-02 13:51 | EKG ---
Test Reason : Blood Pressure : / mmHG Vent. Rate : 075 BPM Atrial Rate : 075 BPM P-R Int : 182 ms QRS Dur : 098 ms QT Int : 400 ms P-R-T Axes : 059 043 057 degrees QTc Int : 446 ms NORMAL SINUS RHYTHM WHEN COMPARED WITH ECG OF 17-JUN-2018 10:13, T WAVE AMPLITUDE HAS DECREASED IN ANTERIOR LEADS Confirmed by TAYO STRICKLAND MD ([id number]) on 01/02/2019 1:51:24 PM Referred By: Confirmed By:TAYO STRICKLAND MD
--- NOTE | 2019-01-05 18:37 | PDOC ---
Documentation entered by Lyn Dean SCRIBE, acting as scribe for Flavio Valencia MD. Flavio Valencia MD: This documentation has been prepared by the aggieibeJermaine Natalie, SCRIBE, under my direction and personally reviewed by me in its entirety. I confirm that the documentation accurately reflects all work, treatment, procedures, and medical decision making performed by me. Attending Attestation - Resident Resident Name: Nathalie Bowling - ED Attending Attestation I have performed the following: I have examined & evaluated the patient, The case was reviewed & discussed with the resident, I agree w/resident's findings & plan, Exceptions are as noted - HPI HPI: 01/02/19 13:35 53 y/o female with a PMH of vaginal bleed (s/p uterine ablation) presents to the ED c/o 2-3 week h/o lower abdominal pain/suprapubic pain. Intermittent comes and goes ROS: A complete review of 10 out of 10 review of systems is taken and is negative apart from what is previously mentioned below and in the HPI. - Physicial Exam PE: 01/02/19 13:38 Reviewed Residents PE - Medical Decision Making 01/02/19 13:52 No fever no white count trace in the cervical f patient feels better Erythematous. Patient will follow up with her SPOT MAN this week or early next week Findings, the need for follow-up and strict return instructions discussed with patient.
== END 2019-01-02 13:46 | disposition home or self-care (01) ==
LOC: JER 10:41
DX: R10.2 Pelvic and perineal pain (principal); F17.210 Nicotine dependence, cigarettes, uncomplicated; J44.9 Chronic obstructive pulmonary disease, unspecified; K76.0 Fatty (change of) liver, not elsewhere classified
CPT/HCPCS: 36415; 71045-TC-FY; 76775-TC; 76830-TC; 80053; 81003; 83690; 84484; 85025; 87086; 93005; 93010; 99283-25

== ENCOUNTER 2019-01-30 06:27 | Day surgery (SDC) | payer BC ==
[2019-01-29 18:11] VITALS: BMI 33.3
--- NOTE | 2019-01-30 07:42 | HP ---
[facility] - Chief Complaint Chief Complaint: Pelvic pain for a long period of time. History of Present Illness: This patient c/o pelvic pain for a long period of time. The patient had a endomtrial ablation in the past and may have hematometra and is here to have a D/C to treat this problem. History Source: Patient Limitations to Obtaining History: No Limitations - Past Medical History Allergies/Adverse Reactions: Allergies Allergy/AdvReac Type Severity Reaction Status Date / Time coconut Allergy Severe THROAT Verified 01/30/19 07:11 CLOSES No Known Drug Allergies Allergy Verified 01/02/19 11:00 HAND CROWN POUNCER: No: Alzheimer's, CVA, Dementia, Migraine, Multiple Sclerosis, Peripheral Neuropathy, Parkinson's, Seizure, Syncope, TIA, Vertigo, Other Cardiovascular: No: AFIB, Aneurysm, Aortic Insufficiency, Aortic Stenosis, CAD, CHF, Deep Vein Thrombosis, HTN, Hyperlipdemia, CA, Mitral Insufficiency, Mitral Stenosis, Murmur, Pulmonary Hypertension, Other Pulmonary: No: Asthma, Bronchitis, Cancer, COPD, O2 Dependent, Pneumonia, Previously Intubated, Pulmonary Embolus, Pulmonary Fibrosis, Sleep Apnea, Other Gastrointestinal: No: Ascites, Cancer, Constipation, Crohn's Disease, Diverticulitis, Diverticulosis, Esophageal Varices, Gastritis, GERD, GI Bleed, Hemorrhoids, Hiatal Hernia, Inflamatory Bowel Disease, Irritable Bowel Disease, Pancreatitis, Peptic Ulcer Disease, Ulcerative Colitis, Other Hepatobiliary: No: Cirrhosis, Cholelithiasis, Cholecystitis, Choledocholithiasis , Hepatitis A, Hepatitis B, Hepatitis C, Other Renal/: No: Renal Failure, Renal Inusuff, BPH, Cancer, Hematuria, Hemodialysis , Neurogenic Bladder, Renal Calculi, UTI, Other Reproductive: No: Ectopic , Endometriosis, Fibroids, PID, Polycystic Ovary Syndrome, Postmenopausal, Other ...LMP: 01/30/19 ...: No ...: 6 ...Para: 2 Heme/Onc: No: Anemia, B12 Deficiency, Bleeding Disorder, Cancer, Current Chemotherapy, Current Radiation Therapy, Hemochromatosis, Hypercoaguable State, Myeloproliferative Synd, Sickle Cell Disease, Sickle Cell Trait, Thrombocytopenia, Other Infectious Disease: No: AIDS, C-Diff, Herpes Zoster, HIV, MRSA, STD's, Tuberculosis, VREF, Other Musculoskeletal: No: Bursitis, Chronic low back pain, Hemiparesis, Hemiplegia, Osteoarthritis, Paraplegia, Other Rheumatology: No: Fibromyalgia, Gout, Lupus, Rheumatoid Arthritis, Sarcoidosis, Vasculitis, Other ENT: No: Allergic Rhinitis, Sinusitis, Other Endocrine: No: Beaver's Disease, Yolande's Disease, Diabetes Insipidus, Diabetes Mellitus, Hyperparathyroidism, Hyperthyroidism, Hypothyroidism, Osteopenia, SIADH, Other Dermatology: No: Basal Cell, Cellulitis, Eczema, Melanoma, Psoriasis, Squamous Cell, Other - Current Medications Current Medications: Home Medications Medication Instructions Recorded NK [No Known Home Medication] 01/29/19 Satellite Physical Exam - Physical Examination Vital Signs: Vital Signs Period Temp Pulse Resp BP Sys/Calderon Pulse Ox Last 24 Hr 98.2 F-98.2 F 86-86 20-20 147-147/78-78 General Appearance: Well Nourished, Well Developed, Alert & Oriented x3 ENT: Clear, No Discharge, No masses Lung: Clear to auscultation Heart: Regular rate & rhythm, Normal S1, Normal S2 Breasts: Soft, Non-Tender, No masses bilaterally Abdomen: Soft, No tenderness, No CVA Extremities: No edema, No tenderness/swelling Pelvic Exam: Within normal limits External Genitalia, Within normal limits Vagina, Within normal limits Cervix, Within normal limits Uterus, Within normal limits [facility] Neu[facility]: Intact, Alert, Oriented Satellite Impression/Plan - Impression/Plan Impression: pelvic pain possibly from hematometra. Operative Procedure: Hysteroscopy with D/C.
[2019-01-30] MEDS ORDERED: DEXAMETHASONE SOD PHOSPHATE 4 MG/1 ML VIAL ONE (08:07)
[2019-01-30] MEDS ORDERED: SUCCINYLCHOLINE CHLORIDE 200 MG/10 ML SYRINGE ONE (08:07)
[2019-01-30] MEDS ORDERED: MIDAZOLAM HCL 2 MG/2 ML SINGLE DOSE VIAL ONE (08:07)
[2019-01-30] MEDS ORDERED: KETOROLAC TROMETHAMINE 30 MG/1 ML VIAL ONE (08:07)
[2019-01-30] MEDS ORDERED: PROPOFOL 20 ML ONE ×2 (08:07)
[2019-01-30] MEDS ORDERED: oxyCODONE HCL 5 MG TABLET PO PRN (08:59)
[2019-01-30] MEDS ORDERED: ONDANSETRON 4 MG/2 ML VIAL IVPUSH PRN (08:59)
[2019-01-30] MEDS ORDERED: PROMETHAZINE HCL 25 MG/1 ML VIAL IVPUSH PRN (08:59)
--- NOTE | 2019-01-30 09:27 | OP ---
DATE OF OPERATION: 01/30/2019 The patient was brought to the operating room, given spinal anesthesia by Dr. Enzo Bernstein. The patient was placed in the lithotomy position, prepped and draped in the usual manner for a D&C. The patient was examined. The uterus was noted to be retroverted, normal size. Adnexa negative. The anterior lip of the cervix was grasped with a tenaculum. A Conley dilator was inserted into the cervical and endometrial cavity to a depth of approximately 6 cm. 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 The endometrial cavity could not be reached because of the resistance and the possibility of uterine perforation. Therefore, the procedure was not carried on to the level of the endometrial cavity. The D&C could not be done. The endometrial curette was too large for the cavity that was produced by the Conley dilator. The Conley dilator was inserted to a depth of approximately 6 cm, and the width of the head of the curette was too large to obtain an endometrial or even a cervical curettage specimen. The patient tolerated procedure well. Hemostasis was good. The estimated blood loss was approximately 5 mL. At the end of the procedure, the speculum was removed from the vagina and the tenaculum from the cervix, and the patient was transferred to the recovery room for observation. Joseph [id number]
[2019-01-30 11:43] VITALS: TEMP 98.2
[2019-01-30 14:00] VITALS: BP 147/83; PULSE 77
== END 2019-01-30 13:00 | disposition home or self-care (01) ==
LOC: JASU-SURG 06:27
PROVIDERS: ATTEND Obstetrics & Gynecology
PROC: 0UJH8ZZ Inspection of Vagina and Cul-de-sac, Via Natural or Artificial Opening Endoscopic (ICD-10-PCS; principal; 2019-01-30 08:00)
DX: N85.6 Intrauterine synechiae (principal); Z53.09 Procedure and treatment not carried out because of other contraindication; R10.2 Pelvic and perineal pain
CPT/HCPCS: 36415; 84703; 86850; 86900; 86901; 94760